=== PATIENT | female | born 1965 | race Asian ===

== ENCOUNTER 2018-09-03 19:18 | Inpatient (IN) | payer OTHER ==
[~2018-09-03] VITALS: Ht 160 cm; Wt 63.2 kg
[2018-09-03 19:28] VITALS: Ht 160 cm; Wt 63.2 kg
[2018-09-03 20:37] LABS: CALCIUM 9.2 mg/dL (8.5-10.1); CARBON DIOXIDE 28.5 mmol/L (21-32); CHLORIDE SERUM 103 mmol/L (98-107); CREATININE SERUM 0.6 mg/dL (0.6-1.0); GFR1 > 60 mL/min; GLUCOSE SERUM 91 mg/dL (74-106); POTASSIUM SERUM 3.8 mmol/L (3.5-5.1); SODIUM SERUM 141 mmol/L (136-145)
[2018-09-03 20:42] LABS: ALBUMIN 3.2 g/dL (3.4-5.0); ALKALINE PHOSPHATASE 103 U/L (46-116); ALT/SGPT 140 U/L (14-59); AMYLASE 44 U/L (25-115); AST/SGOT 50 U/L (15-37); BILIRUBIN TOTAL 0.4 mg/dL (0.20-1.00); LIPASE 145 IU/L (73-393); TOTAL PROTEIN, SERUM 8.1 g/dL (6.4-8.2)
[2018-09-03 20:45] LABS: BASOPHIL % 0.7 % (0-2); PLATELET COUNT 222 x10^3mcL (130-400); RED CELL DISTRIBUTION WIDTH 13.8 % (11.5-14.5)
[2018-09-04 00:33] VITALS: BP 125/64
[2018-09-04 07:16] LABS: CALCIUM 8.2 mg/dL (8.5-10.1); CARBON DIOXIDE 27.2 mmol/L (21-32); CHLORIDE SERUM 109 mmol/L (98-107); CREATININE SERUM 0.6 mg/dL (0.6-1.0); GFR1 > 60 mL/min; GLUCOSE SERUM 96 mg/dL (74-106); POTASSIUM SERUM 3.4 mmol/L (3.5-5.1); SODIUM SERUM 143 mmol/L (136-145)
[2018-09-04 07:33] VITALS: BP 106/62
[2018-09-04 07:51] LABS: PLATELET COUNT 225 x10^3mcL (130-400); RED CELL DISTRIBUTION WIDTH 13.9 % (11.5-14.5)
[2018-09-04 16:29] VITALS: BP 101/49
[2018-09-04 21:29] VITALS: BP 109/62
[2018-09-05 06:24] VITALS: BP 105/54
[2018-09-05 07:00] LABS: CALCIUM 8.4 mg/dL (8.5-10.1); CARBON DIOXIDE 26.7 mmol/L (21-32); CHLORIDE SERUM 108 mmol/L (98-107); CREATININE SERUM 0.6 mg/dL (0.6-1.0); GFR1 > 60 mL/min; GLUCOSE SERUM 112 mg/dL (74-106); POTASSIUM SERUM 3.8 mmol/L (3.5-5.1); SODIUM SERUM 144 mmol/L (136-145)
[2018-09-05 07:14] LABS: BASOPHIL % 0.8 % (0-2); PLATELET COUNT 228 x10^3mcL (130-400); RED CELL DISTRIBUTION WIDTH 13.5 % (11.5-14.5)
[2018-09-05 09:40] VITALS: BP 104/56
[2018-09-05 17:02] VITALS: BP 111/72
[2018-09-05 21:15] VITALS: BP 134/88
[2018-09-06 03:43] VITALS: BP 111/66
[2018-09-06 07:25] LABS: BASOPHIL % 0.9 % (0-2); PLATELET COUNT 259 x10^3mcL (130-400); RED CELL DISTRIBUTION WIDTH 13.3 % (11.5-14.5)
[2018-09-06 07:37] LABS: CALCIUM 8.5 mg/dL (8.5-10.1); CARBON DIOXIDE 28.7 mmol/L (21-32); CHLORIDE SERUM 108 mmol/L (98-107); CREATININE SERUM 0.6 mg/dL (0.6-1.0); GFR1 > 60 mL/min; GLUCOSE SERUM 112 mg/dL (74-106); SODIUM SERUM 142 mmol/L (136-145)
[2018-09-06 08:00] VITALS: BP 118/72
[2018-09-06 09:46] VITALS: BP 105/62
[2018-09-06 12:55] VITALS: BP 105/62
== END 2018-09-06 15:32 | disposition home or self-care (01) | DRG 391 ==
LOC: ED 19:18 → MU 23:06
PROVIDERS: Emergency Medicine; ADMIT Internal Medicine
DX: K57.32 Diverticulitis of large intestine without perforation or abscess without bleeding (principal); K65.9 Peritonitis, unspecified; K58.9 Irritable bowel syndrome, unspecified; R74.0 Nonspecific elevation of levels of transaminase and lactic acid dehydrogenase [LDH]; Z68.22 Body mass index [BMI] 22.0-22.9, adult
CPT/HCPCS: J0694; J1956; J2550; J3490; J7030; J7042; Q0092; Q0162